=== PATIENT | female | born 1965 | race Caucasian/White ===

== ENCOUNTER → 2016-05-07 | Outpatient (CLI) | payer BC ==
--- NOTE | 2016-05-08 07:19 | XR ---
Thoracic spine HISTORY: Pain and numbness 3 views of the thoracic spine Surgical clips are present in the right upper quadrant. Thoracic vertebral bodies show preserved heig ht, alignment, and bone mineralization. Mild spondylosis present at the lower levels. There is a spin al curvature. Patient may be rotated. IMPRESSION: Mild degenerative disc disease. Spinal curvature.
--- NOTE | 2016-05-08 07:20 | XR ---
Lumbosacral spine HISTORY: Pain 5 views of the lumbosacral spine There is a gentle spinal curvature. Surgical clips are present in the right upper quadrant. No spondy lolysis or spondylolisthesis. Lumbar vertebral bodies show preserved height and bone mineralization. Sclerosis present in the posterior elements of the lower lumbar spine. Mild spondylosis is noted. IMPRESSION: Mild degenerative disc disease, facet arthropathy. Spinal curvature. Lumbar MRI may be of benefit.
--- NOTE | 2016-05-08 07:21 | XR ---
Left hip HISTORY: Pain 2 views of the left hip Comparison to previous exam 14 January 2012 Patient shows fallopian tubal ligation clip left hemipelvis. Bone mineralization, joint spaces and al ignment are maintained. No interval change is evident. IMPRESSION: Stable exam. Normal left hip.
== END | disposition home or self-care (01) ==
LOC: RADXRYALE 13:37
PROVIDERS: ATTEND Internal Medicine
DX: M51.36 Other intervertebral disc degeneration, lumbar region (principal); M46.96 Unspecified inflammatory spondylopathy, lumbar region; M43.9 Deforming dorsopathy, unspecified; M51.34 Other intervertebral disc degeneration, thoracic region; M25.552 Pain in left hip
CPT/HCPCS: 72072; 72110; 73502

== ENCOUNTER → 2017-06-13 | Outpatient (CLI) | payer BC ==
--- NOTE | 2017-06-13 15:11 | XR ---
EXAMINATION TYPE: XR chest 2V DATE OF EXAM: 06/13/2017 COMPARISON: NONE HISTORY: Chest pain TECHNIQUE: Frontal and lateral views of the chest are obtained. FINDINGS: There is no focal air space opacity. No evidence for pneumothorax. No pleural effusion. The cardiac silhouette size is within normal limits. The osseous structures are grossly intact. IMPRESSION: 1. No acute cardiopulmonary process.
== END | disposition home or self-care (01) ==
LOC: RADXRYALE 14:53
PROVIDERS: ATTEND Internal Medicine
DX: R05 Cough (principal)
CPT/HCPCS: 71046

== ENCOUNTER 2018-01-23 08:06 | Day surgery (SDC) | payer BC ==
[2018-01-20 16:45] VITALS: BMI 27.4
[~2018-01-23 08:06] MED LIST: LACTATED RINGERS 1,000 ML IV SCH
[2018-01-23 08:26] VITALS: RESP 16; TEMP 97
[2018-01-23] MEDS ORDERED: ONDANSETRON 4 MG/2 ML VIAL IVP ONE (08:31)
[2018-01-23] MEDS ORDERED: PROPOFOL 10 MG/ML 20 ML VIAL IV ONE (09:10)
--- NOTE | 2018-01-23 09:31 | P.PCN ---
Date of Procedure: 01/23/18 Procedure(s) Performed: BRIEF HISTORY: Patient is a 52-year-old pleasant white female, scheduled for an elective colonoscopy as a part of screening for colorectal neoplasia and family history of colon cancer. Her mother was diagnosed with colon cancer at age 80. PROCEDURE PERFORMED: Colonoscopy. PREOPERATIVE DIAGNOSIS: Screening for colon cancer/family history of colon cancer. IV sedation per Anesthesia. PROCEDURE: After informed consent was obtained, the patient, was brought into the endoscopy unit. IV sedation was administered by Anesthesia under continuous monitoring. Digital rectal examination was normal. Initially the Olympus CF- 160 flexible video colonoscope was then inserted in the rectum, gradually advanced into the cecum without any difficulty. Careful examination was performed as the scope was gradually being withdrawn. Ileocecal valve and the appendiceal orifice were visualized and appeared normal. Prep was excellent. Mucosa of the cecum, ascending colon, transverse colon, descending colon, sigmoid colon, and rectum appeared normal. Retroflexion was performed in the rectum and no lesions were seen. The patient tolerated the procedure well. IMPRESSION: Normal-appearing colon from rectum to cecum with no evidence of colorectal neoplasia . RECOMMENDATIONS: Findings of this examination were discussed with the patient as well as a family. She was advised to have a repeat screening colonoscopy in 5 years from now because of family history of colon cancer..
[2018-01-23 09:53] VITALS: BP 123/76; PULSE 72
== END 2018-01-23 10:07 | disposition home or self-care (01) ==
LOC: ORWHC2ENDO 08:06
PROVIDERS: ATTEND Internal Medicine Gastroenterology
DX: Z12.11 Encounter for screening for malignant neoplasm of colon (principal); Z80.0 Family history of malignant neoplasm of digestive organs; E78.5 Hyperlipidemia, unspecified; Z79.82 Long term (current) use of aspirin; Z79.899 Other long term (current) drug therapy
CPT/HCPCS: J2405; J2704; G0105

== ENCOUNTER → 2019-10-07 | Outpatient (CLI) | payer BC ==
--- NOTE | 2019-10-07 08:32 | XR ---
EXAM TYPE: LUMBAR SPINE X RAY SERIES COMPARISON: 05/07/2016 HISTORY: Back pain TECHNIQUE: 4 views are submitted. FINDINGS: Alignment is anatomic. The pedicles are intact. The transverse processes are intact. There is no s pondylolysis or spondylolisthesis. Surgical clips in the right upper quadrant. There is hypertrophic and degenerative change most marked at the thoracolumbar junction and lower thoracic spine. Findings similar to the prior exam. Stable facet arthropathy L4-5 and L5-S1. IMPRESSION: 1. Stable multilevel degenerative disc disease most marked at the thoracolumbar junction..
--- NOTE | 2019-10-07 08:33 | XR ---
EXAMINATION TYPE: XR thoracic spine 2V DATE OF EXAM: 10/07/2019 COMPARISON: NONE HISTORY: Pain TECHNIQUE: 3 views submitted FINDINGS: Alignment is anatomic. There is no compression deformities. There is multilevel hypertrophic and deg enerative changes most marked at the level of the thoracolumbar junction. Surgical clips in the gallb ladder fossa. IMPRESSION: 1. Multilevel degenerative disc disease most marked at the thoracolumbar junction.
== END | disposition home or self-care (01) ==
LOC: RADXRYALE 08:07
PROVIDERS: ATTEND Internal Medicine
DX: M51.36 Other intervertebral disc degeneration, lumbar region (principal)
CPT/HCPCS: 72070; 72110

== ENCOUNTER → 2024-03-03 | Outpatient (CLI) | payer BC ==
--- NOTE | 2024-03-03 17:38 | XR ---
EXAMINATION TYPE: XR chest 2V DATE OF EXAM: 03/03/2024 4:17 PM COMPARISON: 06/13/2017 CLINICAL INDICATION: Female, 58 years old with history of R053 COUGH, TECHNIQUE: XR chest 2V view(s) obtained. FINDINGS: The heart size is normal. The pulmonary vasculature is normal. The lungs are clear. IMPRESSION: 1. No acute pulmonary process. [facility], , 03/03/2024 5:36 PM
== END | disposition home or self-care (01) ==
LOC: RADXRYALE 15:44
PROVIDERS: ATTEND Internal Medicine
DX: R05.3 Chronic cough (principal)
CPT/HCPCS: 71046

== ENCOUNTER → 2024-05-25 | Outpatient (CLI) | payer BC ==
[2024-05-25 13:20] VITALS: BP 107/70; PULSE 72; RESP 16; TEMP 98.1
--- NOTE | 2024-05-25 14:44 | P.HPOB ---
History of Present Illness H&P Date: 05/25/24 Chief Complaint: The patient is here for her routine gynecologic exam This is a 58-year-old -0-2-2 with an LMP of 2005. Patient is here to establish with this office. It has been about 2 years since her last pelvic exam. She previously saw Dr. Quinonez and Dr. Be for her gynecologic care. She believes she went through a menopausal change around 2013. She says she still has occasional hot flashes and night sweats but are not too severe. She was having some pelvic pain and was diagnosed with a UTI. She took antibiotics for this about 1-1/2 weeks ago and the pain resolved. When she was having the pain, it was greater on the left side. Review of Systems The patient's weight has been stable over the last year. She denies respiratory, cardiac, or G.I. problems. Past Medical History Past Medical History: Hyperlipidemia, Skin Disorder Additional Past Medical History / Comment(s): Psoriasis. 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 History of Any Multi-Drug Resistant Organisms: None Reported Past Surgical History: Cholecystectomy, Orthopedic Surgery, Tubal Ligation, Uterine Ablation Additional Past Surgical History / Comment(s): D & C. COLONOSCOPY(2023 [facility], next after 5yr). Endometrial ablation 2005. Past Anesthesia/Blood Transfusion Reactions: Motion Sickness, Postoperative Nausea & Vomiting (PONV) Past Psychological History: No Psychological Hx Reported Smoking Status: Never smoker Past Alcohol Use History: None Reported Past Drug Use History: None Reported Additional History: She has been since 2000. 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 - Past Family History Mother Family Medical History: Cancer, Hyperlipidemia Additional Family Medical History / Comment(s): COLON CANCER and breast cancer. Macular degeneration. A maternal aunt had breast cancer. Father Family Medical History: Cancer, Diabetes Mellitus Additional Family Medical History / Comment(s): Throat cancer. . 2 paternal aunts had breast cancer. Sister(s) Family Medical History: CVA/TIA Additional Family Medical History / Comment(s): CVA which completely resolved. Medications and Allergies Home Medications Medication Instructions Recorded Confirmed Type Rosuvastatin Calcium [Crestor] 5 mg PO HS 01/20/18 05/25/24 History Allergies Allergy/AdvReac Type Severity Reaction Status Date / Time No Known Allergies Allergy Verified 05/25/24 13:16 Exam Vital Signs Temp Pulse Resp BP Pulse Ox 05/25/24 13:17 98.1 F 72 16 107/70 98 Intake and Output 05/24/24 05/25/24 05/25/24 22:59 06:59 14:59 Other: Weight 84.368 kg Height 5 feet 5 inches, weight 186 pounds, BMI 31.0. This is a well-developed well-nourished white female who is alert and oriented times 3 in no acute distress. HEENT: Within normal limits. NECK: Supple without mass or thyromegaly. CHEST AND LUNGS: Clear to auscultation. HEART: Regular rate and rhythm. BREASTS: Are without mass or discharge. AXILLARY EXAM: Negative for adenopathy. BACK: Negative for CVA tenderness. ABDOMEN: Soft, nontender, without palpable masses. PELVIC EXAM: Normal external genitalia with mild atrophy. Cervix and vagina appear normal with mild atrophy. There is no unusual discharge. There is no evidence of prolapse. The uterus is midposition, nongravid size and nontender. There are no palpable adnexal masses or tenderness. RECTAL EXAM: Rectovaginal exam is negative for mass or tenderness and is negative for occult blood. EXTREMITIES: Nontender. IMPRESSION: 1. 58-year-old menopausal female with normal gynecologic exam. 2. Patient pelvic pain about 2 weeks ago which resolved after she was treated for UTI. There are no significant physical findings on exam today. PLAN: 1. Pap smear cotest was performed. 2. Self breast awareness was discussed with the patient. We have also discussed symptoms associated with inflammatory breast cancer. 3. Screening mammogram will be due in September. These have been done at [facility]. The order slip was given to the patient for this. 4. Osteoporosis prevention was discussed. I have stressed the importance of adequate calcium, vitamin D and regular exercise. Recommended amounts of calcium and vitamin D were also discussed. I recommended a bone density test at age 62. 5. She was advised to return in one year for her annual well woman exam. She was also instructed to call if she has a recurrence of her pelvic pain.
== END ==
LOC: WWCWWP 13:02
PROVIDERS: ATTEND Obstetrics & Gynecology
DX: Z01.419 Encounter for gynecological examination (general) (routine) without abnormal findings (principal); N95.1 Menopausal and female climacteric states; Z87.440 Personal history of urinary (tract) infections